=== PATIENT | male | born 1955 | race Caucasian/White ===

== ENCOUNTER 2017-06-07 08:12 | Day surgery (SDC) | payer OTHER ==
[2017-06-07] MEDS ORDERED: PROPOFOL 60 ML (09:31)
[2017-06-07] MEDS ORDERED: LIDOCAINE 2% (SDV) 5 ML INJ (09:31)
[2017-06-07] MEDS ORDERED: PROPOFOL 40 ML (10:10)
== END 2017-06-07 11:53 | disposition home or self-care (01) ==
LOC: GIL 08:12
DX: D12.5 Benign neoplasm of sigmoid colon (principal); K44.9 Diaphragmatic hernia without obstruction or gangrene; K21.9 Gastro-esophageal reflux disease without esophagitis; K29.60 Other gastritis without bleeding; C19 Malignant neoplasm of rectosigmoid junction
CPT/HCPCS: 43239; 87081; 88305

== ENCOUNTER 2018-02-07 07:51 | Day surgery (SDC) | payer OTHER ==
[2018-02-07] MEDS ORDERED: SOD CHLORIDE 0.9% 1,000 ML IV (08:43)
[2018-02-07] MEDS: LIDOCAINE 1%/EPI 30 ML INJ (11:08)
[2018-02-07] MEDS: HEPARIN 1000 UNITS/ML 10 ML INJ (11:15)
== END 2018-02-07 14:02 | disposition home or self-care (01) ==
LOC: SDS 07:51
DX: Z45.2 Encounter for adjustment and management of vascular access device (principal); C20 Malignant neoplasm of rectum; K21.9 Gastro-esophageal reflux disease without esophagitis
CPT/HCPCS: 36561; 71046; 76000; 93005